=== PATIENT | male | born 1950 | race Caucasian/White ===

== ENCOUNTER 2021-03-10 10:33 | Emergency (ER) | payer BC ==
[2021-03-10] MEDS ORDERED: Meclizine HCl 25 MG TAB ONE (11:23)
[2021-03-10 12:07] LABS: #Lymphocytes 0.5 thou/uL (1.20-3.40); #Monocytes 0.3 thou/uL (0.11-0.59); #Neutrophils 7.2 thou/uL (1.40-6.50); %Basophils 0.1 % (0.0-1.0); %Eosinophils 0.2 % (0.0-10.0); %Lymphocytes 6.5 % (21.0-51.0); %Monocytes 3.5 % (0.0-10.0); %Neutrophils 89.7 % (42.0-75.0); Hemoglobin 14.9 g/dL (14.0-18.0); Mean Corpuscular HGB CONC 32.7 g/dL (32.0-36.0); Mean Corpuscular Hemoglobin 30.8 pg (27.0-31.0); Mean Corpuscular Volume 94.1 fL (78.0-98.0); Mean Platelet Volume 8.5 fL (7.4-10.4); Platelet Count 198 thou/uL (130-400); RBC Distribution Width 12.2 % (11.5-14.5); Red Blood Cell (RBC) Count 4.85 mill/uL (4.70-6.10)
[2021-03-10 12:30] LABS: ALT (SGPT) 24 U/L (8-55); AST (SGOT) 16 U/L (5-34); Albumin 4.1 g/dL (3.4-4.8); Alkaline Phosphatase 48 U/L (40-110); Anion Gap 14 mmol/L (10-20); BUN (Urea Nitrogen) 14 mg/dL (8.4-25.7); Bilirubin, Total 0.6 mg/dL (0.2-1.2); Calc. Creatinine Clearance 0 mL/min (70-130); Carbon Dioxide 23 mmol/L (23-31); Chloride 104 mmol/L (98-107); Globulin 2.7 g/dL (2.4-3.5); Glucose 207 mg/dL (83-110); Potassium 4.1 mmol/L (3.5-5.1); Protein, Total 6.8 g/dL (5.8-8.1); Sodium 137 mmol/L (136-145)
== END 2021-03-10 13:45 | disposition home or self-care (01) ==
LOC: ERS 10:33
DX: R42 Dizziness and giddiness (principal); H61.22 Impacted cerumen, left ear; E11.9 Type 2 diabetes mellitus without complications; I10 Essential (primary) hypertension; Z79.899 Other long term (current) drug therapy
CPT/HCPCS: 36415; 69209; 70450; 71045; 80053; 84484; 85025; 93005; 94760

== ENCOUNTER 2022-05-05 08:14 | Outpatient (CLI) | payer MEDICARE, BC ==
[2022-05-05 10:05] LABS: #Basophils 0.1 10x3/uL (0.0-0.2); #Eosinphils 0.1 10x3/uL (0.0-0.5); #Monocytes 0.6 10x3/uL (0.0-1.1); #Neutrophils 3.2 10x3/uL (1.5-8.4); %Eosinophils 1.5 % (0.0-6.0); %Lymphocytes 23.8 % (18.0-47.0); %Monocytes 11.5 % (0.0-10.0); %Neutrophils 61.8 % (40.0-75.0); Hemoglobin 15.1 g/dL (13.5-17.5); Mean Corpuscular HGB CONC 33.9 g/dL (32.0-36.0); Mean Corpuscular Hemoglobin 30.8 pg (27.0-33.0); Mean Corpuscular Volume 90.8 fl (81.2-95.1); Platelet Count 233 10x3/uL (150-450); RBC Distribution Width 13.2 % (11.5-14.5); Red Blood Cell (RBC) Count 4.91 10x6/uL (4.32-5.72); White Blood Cell (WBC) Count 5.2 10x3/uL (3.5-10.5)
[2022-05-05 10:14] LABS: Prothrombin Time 10.5 sec (9.5-12.1)
[2022-05-05 10:17] LABS: Anion Gap 15 mmol/L (10-20); BUN (Urea Nitrogen) 17 mg/dL (8.4-25.7); Calc. Creatinine Clearance 0 mL/min (70-130); Calcium 9.6 mg/dL (7.8-10.44); Carbon Dioxide 24 mmol/L (23-31); Chloride 105 mmol/L (98-107); Estimated GFR 71; Glucose 125 mg/dL (83-110); Potassium 4.2 mmol/L (3.5-5.1); Sodium 140 mmol/L (136-145)
== END 2022-05-05 08:15 | disposition home or self-care (01) ==
LOC: LABBT 08:14
PROVIDERS: ATTEND Orthopaedic Surgery
DX: Z01.812 Encounter for preprocedural laboratory examination (principal); M16.12 Unilateral primary osteoarthritis, left hip; Z20.822 Contact with and (suspected) exposure to COVID-19
CPT/HCPCS: 80048; 85025; 85610; 87081; 87811

== ENCOUNTER 2022-05-10 06:24 | Observation (INO) | payer MEDICARE, BC ==
[2022-05-06 14:44] VITALS: BMI 36.1
[2022-05-10] MEDS ORDERED: Tranexamic Acid 1,000 MG/10 ML VIAL ONE (07:05)
[2022-05-10] MEDS ORDERED: Sodium Chloride 0.9% 100 ML ONE ×2 (07:05→08:43)
[2022-05-10] MEDS ORDERED: Vancomycin (BATCH) 1.5 GRAM/300 ML BAG ONE (07:28)
[2022-05-10] MEDS ORDERED: Midazolam HCl 2 mg/2 ml Vial ONE (08:05)
[2022-05-10] MEDS ORDERED: Fentanyl 100 MCG/2 ML VIAL ONE (08:05)
[2022-05-10] MEDS ORDERED: CEFAZOLIN 2 GM VIAL ONE (08:43)
[2022-05-10] MEDS ORDERED: PROPOFOL 200 MG/20 ML VIAL ONE (09:18)
[2022-05-10] MEDS ORDERED: Lidocaine 1% MPF 2 ML VIAL ONE (09:18)
[2022-05-10] MEDS ORDERED: ePHEDrine 50 MG/ML VIAL ONE (09:18)
[2022-05-10] MEDS ORDERED: Ondansetron PF 4 MG/2 ML Vial ONE (09:18)
[2022-05-10] MEDS ORDERED: Lidocaine 1.5% w/Epi 1:200K 30 ML VIAL (Epid Use) ONE (09:18)
[2022-05-10] MEDS ORDERED: Dexamethasone 20 MG/5 ML VIAL ONE (09:18)
[2022-05-10] MEDS ORDERED: Phenylephrine 10 MG/ML VIAL ONE (09:18)
[2022-05-10] MEDS ORDERED: Succinylcholine 200 MG/10 ml SYRINGE FS ONE (09:18)
[2022-05-10] MEDS ORDERED: HYDROmorphone 2 MG/ML VIAL ONE (09:19)
[2022-05-10] MEDS ORDERED: Acetaminophen 325 MG TAB PO PRN ×2 (09:25→10:28)
[2022-05-10] MEDS ORDERED: HYDROcodone/Acetaminophen 5/325 mg Tablet PO PRN ×2 (09:30)
[2022-05-10] MEDS ORDERED: Moisturizing Cream (Eucerin) 113 GM JAR TOP PRN (09:30)
[2022-05-10] MEDS ORDERED: diphenhydrAMINE 50 MG/ML VIAL IVP PRN (09:30)
[2022-05-10] MEDS ORDERED: Bupivacaine 0.25% 10 ML VIAL EPIDURAL PRN (09:30)
[2022-05-10] MEDS ORDERED: Naloxone HCl 0.4 mg/ml Vial IV PRN (09:30)
[2022-05-10] MEDS ORDERED: diphenhydrAMINE 50 MG/ML VIAL IM PRN (09:30)
[2022-05-10] MEDS ORDERED: Ondansetron PF 4 MG/2 ML Vial IVP PRN ×2 (09:30→10:28)
[2022-05-10] MEDS ORDERED: diphenhydrAMINE 25 MG CAP PO PRN ×2 (09:30→10:28)
[2022-05-10] MEDS ORDERED: Fentanyl 5 mcg/Bup 0.075% Cadd 100 ML EPIDURAL SCH (09:30)
[2022-05-10] MEDS ORDERED: Zolpidem Tartrate 5 MG TAB PO PRN ×2 (09:30→21:00)
[2022-05-10] MEDS ORDERED: Naloxone HCl 0.4 mg/ml Vial IVP PRN (09:30)
[2022-05-10] MEDS ORDERED: Promethazine HCl 25 MG/ML VIAL IM PRN ×3 (09:30→11:39)
[2022-05-10] MEDS ORDERED: Promethazine HCl 25 MG SUPP PR PRN (09:30)
[2022-05-10] MEDS ORDERED: traMADol HCl 50 MG TAB PO PRN ×2 (09:30)
[2022-05-10] MEDS ORDERED: HYDROmorphone 2 MG/ML VIAL SLOW IVP PRN (11:39)
[2022-05-10] MEDS ORDERED: Promethazine HCl 25 MG/ML VIAL IVPB PRN (11:39)
[2022-05-10] MEDS ORDERED: HYDROmorphone 0.5 MG/0.5 ML SYRINGE ONE (12:03)
[2022-05-10] MEDS: Ketorolac Tromethamine 30 MG/ML VIAL IVP SCH ×2 (17:18→18:15)
[2022-05-10] MEDS: CEFAZOLIN 2 GM in Sodium Chloride 0.9% 100 ML IVPB SCH (18:14)
[2022-05-10] MEDS: Sodium Chloride 0.9% 1,000 ML IV SCH ×2 (18:15→21:52)
[2022-05-10] MEDS ORDERED: Insulin Regular 300 UNITS/3 ML VIAL SC PRN ×2 (19:56)
[2022-05-10] MEDS ORDERED: Dextrose 50% Abboject 50 ML SYRINGE SLOW IVP PRN (19:56)
[2022-05-10] MEDS ORDERED: Dextrose 5% in Water 1,000 ML IV PRN (19:56)
[2022-05-10] MEDS ORDERED: Atorvastatin Calcium 10 MG TAB PO SCH (21:00)
[2022-05-10] MEDS ORDERED: Vancomycin HCl 1.5 GM in Sodium Chloride 0.9% 250 ML 300 ML IVPB SCH (21:00)
[2022-05-10] MEDS: Senokot S 8.6-50 MG TAB PO SCH (21:50)
[2022-05-10] MEDS: Ferrous Gluconate 324 MG TAB PO SCH (21:51)
[2022-05-10] MEDS: Aspirin 81 mg Enteric Coated Tablet PO SCH (21:51)
[2022-05-11] MEDS: Ketorolac Tromethamine 30 MG/ML VIAL IVP SCH ×3 (00:15→11:34)
[2022-05-11] MEDS: CEFAZOLIN 2 GM in Sodium Chloride 0.9% 100 ML IVPB SCH (03:02)
[2022-05-11 06:15] LABS: Hemoglobin 11.6 g/dL (14.0-18.0); Mean Corpuscular HGB CONC 33.4 g/dL (32.0-36.0); Mean Corpuscular Hemoglobin 31.7 pg (27.0-31.0); Mean Platelet Volume 8.4 fL (7.4-10.4); Platelet Count 162 thou/uL (130-400); RBC Distribution Width 12.2 % (11.5-14.5); Red Blood Cell (RBC) Count 3.65 mill/uL (4.70-6.10); White Blood Cell (WBC) Count 9.4 thou/uL (4.8-10.8)
[2022-05-11] MEDS: Sodium Chloride 0.9% 1,000 ML IV SCH (06:39)
[2022-05-11] MEDS ORDERED: Lisinopril 20 MG TAB PO SCH (09:00)
[2022-05-11] MEDS ORDERED: Amlodipine 10 MG TAB PO SCH (09:00)
[2022-05-11] MEDS ORDERED: Multivitamin W/ Minerals 1 TAB PO SCH (09:00)
[2022-05-11] MEDS: Senokot S 8.6-50 MG TAB PO SCH (09:31)
[2022-05-11] MEDS: Ferrous Gluconate 324 MG TAB PO SCH (09:31)
[2022-05-11] MEDS: Aspirin 81 mg Enteric Coated Tablet PO SCH (09:31)
[2022-05-11] MEDS ORDERED: HYDROcodone/Acetaminophen 10/325 mg Tablet PO PRN ×2 (11:07)
[2022-05-11 16:04] VITALS: TEMP 98
[2022-05-11 16:15] VITALS: BP 151/83
== END 2022-05-11 16:40 | disposition home or self-care (01) ==
LOC: SDC 06:24 → SURG B 13:05
PROVIDERS: ADMIT Orthopaedic Surgery; ATTEND Orthopaedic Surgery
PROC: 0SRB04A Replacement of Left Hip Joint with Ceramic on Polyethylene Synthetic Substitute, Uncemented, Open Approach (ICD-10-PCS; principal; 2022-05-10)
PROC: 3E0S3BZ Introduction of Anesthetic Agent into Epidural Space, Percutaneous Approach (ICD-10-PCS; 2022-05-10)
DX: M16.12 Unilateral primary osteoarthritis, left hip (principal); I10 Essential (primary) hypertension; E78.00 Pure hypercholesterolemia, unspecified; E11.9 Type 2 diabetes mellitus without complications; Z79.82 Long term (current) use of aspirin; Z79.84 Long term (current) use of oral hypoglycemic drugs; Z79.899 Other long term (current) drug therapy; Z96.641 Presence of right artificial hip joint
CPT/HCPCS: 27130; 62320; 72170; 73501; 82962 ×2; 85027; 97110; 97116 ×2; 97535; C1776; J3370; 36415; 36416; J0690; J1100; J1170; J1885; J2001; J2250; J2370; J2405; J2704; J3010; J3490; J7050